=== PATIENT | female | born 1970 | race Caucasian/White ===

== ENCOUNTER → 2016-08-14 | Outpatient (CLI) | payer OTHER ==
[~2016-08-14] MED LIST: ACET-1311 PO; IBUP-1050 PO; PRENTAB26 PO
--- NOTE | 2016-08-14 13:18 | MAMMOGRAPHY REPORT ---
BILATERAL DIGITAL SCREENING MAMMOGRAM TOMOSYNTHESIS WITH CAD: 08/14/2016 CLINICAL HISTORY: Routine screening. Patient has no complaints. TECHNIQUE: Breast tomosynthesis in addition to standard 2D mammography was performed. Current study was also evaluated with a Computer Aided Detection (CAD) system. COMPARISON: Comparison is made to exams dated: 09/13/2015 ultrasound, 09/13/2015 mammogram, 08/11/2015 ma mmogram, 08/08/2014 mammogram, 06/11/2013 mammogram, and 05/22/2012 mammogram - [facility]. BREAST COMPOSITION: The tissue of both breasts is heterogeneously dense, which may obscure small ma sses. FINDINGS: No suspicious masses, calcifications, or areas of architectural distortion are noted in e ither breast. There has been no significant interval change compared to prior exams. Benign-appeari ng circumscribed masses in the left upper outer quadrant are stable. A biopsy marker clip is again noted in the left upper outer quadrant. Bilateral benign-appearing calcifications are not significa ntly changed. IMPRESSION: ACR BI-RADS CATEGORY 2: BENIGN There is no mammographic evidence of malignancy. A 1 year screening mammogram is recommended. The p atient will receive written notification of the results. Approximately 10% of breast cancers are not detected with mammography. A negative mammographic repor t should not delay biopsy if a clinically suggestive mass is present. Sherri Linn M.D. /:08/14/2016 09:00:54 Printed Circuit Board Pcb Designer: Harini CUELLO)(Latoya), [facility] letter sent: Normal 1/2 BI-RADS Code: ACR BI-RADS Category 2: Benign
== END | disposition home or self-care (01) ==
LOC: C.MAMM 08:22
PROVIDERS: ATTEND Obstetrics & Gynecology
DX: Z12.31 Encounter for screening mammogram for malignant neoplasm of breast (principal)

== ENCOUNTER → 2016-08-23 | Outpatient (CLI) | payer OTHER | END | disposition home or self-care (01) | LOC: C.PAPS 15:50 | PROVIDERS: ATTEND Obstetrics & Gynecology | DX: Z01.419 Encounter for gynecological examination (general) (routine) without abnormal findings (principal) ==

== ENCOUNTER → 2017-08-19 | Outpatient (CLI) | payer BC ==
--- NOTE | 2017-08-19 15:04 | MAMMOGRAPHY REPORT ---
BILATERAL DIGITAL SCREENING MAMMOGRAM TOMOSYNTHESIS WITH CAD: 08/19/2017 CLINICAL HISTORY: Routine screening. Patient has no complaints. TECHNIQUE: Breast tomosynthesis in addition to standard 2D mammography was performed. Current study was also evaluated with a Computer Aided Detection (CAD) system. COMPARISON: Comparison is made to exams dated: 08/14/2016 mammogram, 09/13/2015 ultrasound, 09/13/2015 ma mmogram, 08/11/2015 mammogram, 08/08/2014 mammogram, and 06/11/2013 mammogram - [facility] BREAST COMPOSITION: The tissue of both breasts is heterogeneously dense, which may obscure small mas ses. FINDINGS: There is a focal area of architectural distortion in the upper outer approximate 9:00 post erior right breast, for which additional spot compression tomosynthesis views and possible ultrasound are recommended. A lobulated possible bilobed 2 cm mass versus 2 masses in the left upper outer jonas drant posteriorly are increasingly prominent compared to prior mammograms. A biopsy marker clip is a lso seen in the vicinity. Additional spot compression tomosynthesis, exaggerated lateral CC tomosynt hesis views and possible ultrasound are recommended for further characterization. No other suspicious mass, architectural distortion or cluster of microcalcifications is seen bilatera lly. IMPRESSION: ACR BI-RADS CATEGORY 0: INCOMPLETE EVALUATION: NEED ADDITIONAL IMAGING EVALUATION The focal area of architectural distortion in the 9:00 posterior right breast and a bilobed 2 cm mass versus 2 adjacent masses in the left upper outer quadrant posteriorly need additional imaging evalua tion. The patient will be called to schedule an appointment. Approximately 10% of breast cancers are not detected with mammography. A negative mammographic report should not delay biopsy if a clinically suggestive mass is present. Amaya Epps M.D. ay/:08/19/2017 09:07:36 Photo Offset Printer: Charmaine George M, [facility] letter sent: Addl Imaging 0 BI-RADS Code: ACR BI-RADS Category 0: Incomplete Evaluation: Need Additional Imaging Evaluation
== END | disposition home or self-care (01) ==
LOC: C.MAMM 08:08
PROVIDERS: ATTEND Obstetrics & Gynecology
DX: Z12.31 Encounter for screening mammogram for malignant neoplasm of breast (principal)

== ENCOUNTER → 2017-10-30 | Day surgery (SDC) | payer BC ==
[2017-10-01 10:00] VITALS: Ht 176.5 cm; Wt 94.5 kg
--- NOTE | 2017-10-03 12:22 | PAT Medication Instructions ---
Service Date Oct 03, 2017. Current Home Medication List Acetaminophen (Tylenol), 650 MG PO Q4HR PRN Ibuprofen (Advil), 200-600 MG PO Q4HR PRN Multivit/Min/Iron/Fol Ac/Pren ( Vitamin), 1 TAB PO QAM Naproxen (Aleve), 220 MG PO UD PRN for PRN Medication Instructions For Your Scheduled Surgery -Check with your surgeon for instructions for: Ibuprofen (Advil), 200-600 MG PO Q4HR PRN Naproxen (Aleve), 220 MG PO UD PRN for PRN - Hold the following medications the morning of surgery: Multivit/Min/Iron/Fol Ac/Pren ( Vitamin), 1 TAB PO QAM - Take the following medications the morning of surgery with a sip of water: Acetaminophen (Tylenol), 650 MG PO Q4HR PRN (if needed, may be taken up to four hours before surgery) - Take the following medications as scheduled the night before surgery: Acetaminophen (Tylenol), 650 MG PO Q4HR PRN (if needed) If you have any questions please call us at [phone] or [phone] or [phone]
[2017-10-03 12:46] LABS: BASO % 0.5 %; BASO ABS # 0.04 K/uL (0-0.2); EOS % 1.7 %; EOS ABS # 0.14 K/uL (0-0.5); HEMATOCRIT 40.2 % (37-47); HEMOGLOBIN 13.7 g/dL (12.0-16.0); IG# 0.03 K/uL (0.00-0.02); LYMPH % 22.3 %; LYMPH ABS # 1.87 K/uL (1.2-3.4); MEAN CELL VOLUME 90.5 fL (80-100); MEAN CORPUSCULAR HEMOGLOBIN 30.9 pg (25-34); MEAN CORPUSCULAR HGB CONC 34.1 g/dl (32-36); MEAN PLATELET VOLUME 10.4 fL (7.4-10.4); MONO % 6.9 %; MONO ABS # 0.58 K/uL (0.11-0.59); NEUT % 68.2 %; NEUT ABS # 5.71 K/uL (1.4-6.5); PLATELET COUNT 239 K/uL (130-400); RED CELL DISTRIBUTION WIDTH CV 13.7 % (11.5-14.5); WHITE BLOOD COUNT 8.37 K/uL (4.8-10.8)
--- NOTE | 2017-10-03 12:51 | DIAGNOSTIC IMAGING REPORT ---
CHEST 2 VIEWS ROUTINE HISTORY: Preop. COMPARISON: None. FINDINGS: The lungs are clear. Cardiac silhouette is normal in size. No pleural effusions. No pneumothorax. IMPRESSION: No acute process. Electronically signed by: Ananth Collins M.D. 10/03/2017 12:50 PM Dictated Date/Time: 10/03/2017 12:48 PM
[2017-10-03 13:20] LABS: CALCIUM 8.5 mg/dl (8.5-10.1); CREATININE 0.71 mg/dl (0.60-1.20)
[~2017-10-30] VITALS: Ht 176.5 cm; Wt 94.5 kg
[~2017-10-30] MED LIST changes: +ATROPINE SULFATE 0.1 MG/ML 5ML SYR IV PRN; +BUPIVACAINE/EPINEPHRINE 0.5% MPF 1:200,000 30 ML VIAL ONE; +CEFAZOLIN 2000MG IV PUSH 15 ML IV SCH; +DEXAMETHASONE SOD INJ 4 MG/ML VIAL ONE; +EpHEDrine SULFATE INJ 50 MG/ML AMP IV PRN; +FENTANYL CITRATE INJ 50 MCG/1 ML 2 ML VIAL IV PRN; +FENTANYL CITRATE INJ 50 MCG/1 ML 2 ML VIAL ONE; +HYDR-5688 PO; +HYDROCODONE/ACETAMIN 5/325MG TAB PO PRN; +LACTATED RINGER'S 1000ML 1,000 ML IV SCH; +LIDOCAINE HCL 2% 2 ML VIAL (20MG/ML) ONE; +MIDAZOLAM HCL 1 MG/ML 2ML VIAL ONE; +NAPR1TAB9 PO; +ONDANSETRON INJ 2 MG/ML 2 ML VIAL IV PRN; +ONDANSETRON INJ 2 MG/ML 2 ML VIAL ONE; +PROPOFOL IV EMULSION 10 MG/ML 20 ML VIAL ONE; +SODIUM CHLORIDE 0.9% 1000ML 1,000 ML IV SCH
[2017-10-30 09:30] VITALS: BP 161/79; PULSE 66; TEMP 36.8; O2SAT 98
--- NOTE | 2017-10-30 11:08 | History & Physical Bridge Note ---
H&P Re-Evaluation Bridge Note: I have examined the patient, reviewed the History & Physical and in the interval since the performance of the History & Physical I have noted the following changes of clinical significance: No changes noted
--- NOTE | 2017-10-30 13:06 | [facility] Post Operative Brief Note ---
Immediate Operative Summary Operative Date Oct 30, 2017. Pre-Operative Diagnosis Lobular Carcinoma in situ of Right Breast Post-Operative Diagnosis Same as preoperative. Procedure(s) Performed Right Breast Lumpectomy With Needle Localization times [address] Loki Bautista Washer Cutter Surgeon(s) Kassidy Meng PA-C Estimated Blood Loss 50ml Findings Consistent with Post-Op Diagnosis Specimens FRESH: A.) Right Breast Mass #1, 1 Long Lateral, 2 Short Superior, Wire Anterior, 2 Long Posterior B.) Right Breast Mass #2, 1 Long Lateral, 2 Short Superior, 2 Long Posterior C.) Right Breast, Additional Medial Margin Anesthesia Type General
--- NOTE | 2017-10-30 13:21 | Discharge Instructions ---
Discharge Instructions Date of Service Oct 30, 2017. Admission Reason for Admission: [facility] Right Breast Discharge Discharge Diagnosis / Problem: Lcis Right Breast Discharge Goals Goal(s): Decrease discomfort, Improve function Activity Recommendations Activity Limitations: as noted below Lifting Limitations: no more than 10 pounds Exercise/Sports Limitations: until after follow-up appointment May Resume Sexual Activity: after follow-up appointment Shower/Bathe: tomorrow Driving or Machine Use: resume 3 days after discharge . Instructions / Follow-Up Instructions / Follow-Up You may remove your gauze dressing tomorrow. You have steri-strips over your incisions, please allow these to fall off by themselves. You may shower tomorrow, 10/31/2017, but please do not soak or scrub your incisions. Please follow-up in the General Surgery Clinic in 1-2 weeks. Please call the General Surgery Clinic at [phone] to make an appointment if you do not have one already. Please call the clinic at [phone] with any questions or concerns. Current Hospital Diet Patient's current hospital diet: Discharge Diet Recommended Diet: Regular Diet Procedures Procedures Performed: Right Breast Lumpectomy With Needle Localization times 2 Pending Studies Studies pending at discharge: yes List of pending studies: Pathology report. Medical Emergencies . Who to Call and When: Medical Emergencies: If at any time you feel your situation is an emergency, please call 911 immediately. . Non-Emergent Contact Non-Emergency issues call your: Primary Care Provider, Surgeon Call Non-Emergent contact if: temperature is above 101.5, your pain is not controlled, wound has increased drainage, wound has increased redness . "Provider Documentation" section prepared by Kassidy Meng. .
--- NOTE | 2017-10-30 13:22 | [facility] Operative Report ---
Operative Report Operative Date Oct 30, 2017. Pre-Operative Diagnosis Lobular Carcinoma in situ of Right Breast Post-Operative Diagnosis Same as preoperative. Procedure(s) Performed Right Breast Lumpectomy With Needle Localization times [address] Loki Bautista Air Drill Operator Surgeon(s) Kassidy Meng PA-C Estimated Blood Loss 50ml Specimens FRESH: A.) Right Breast Mass #1, 1 Long Lateral, 2 Short Superior, Wire Anterior, 2 Long Posterior B.) Right Breast Mass #2, 1 Long Lateral, 2 Short Superior, 2 Long Posterior C.) Right Breast, Additional Medial Margin Anesthesia Type General Description of Procedure Prior to coming to the operating room the patient had been to the breast center and had 2 lesions needle localized without difficulty. She was then brought to the operating room and placed in supine position with the right arm extended. After successful placement of the laryngeal mask airway the right breast and chest wall was sterilely prepped and draped in usual fashion. We began with the medial most lesion. I made a periareolar incision with scalpel and created flaps using electrocautery. We cut the guidewire short and delivered it into the wound. Then using traction countertraction we came around the guidewire in 360 until we were posterior to the clip and yun. We then removed the lesion in 1 piece. I marked it such that one long stitch was lateral 2 short sutures were superior and 2 long sutures were posterior. We thoroughly irrigated the wound. I controlled any bleeding points using electrocautery. Jim powder was then placed on all the raw surfaces. I closed the wound using 2-0 Vicryl for deep layers 3-0 Vicryl for mid layers and 4-0 Monocryl for the skin. Marcaine with epinephrine was injected around for postoperative analgesia. Benzoin Steri-Strips were placed as a dressing. We did x-ray to ensure that the clip was in the middle of the specimen of which it was. Attention then turned to the lateral lesion. We used the same technique. I used a curvilinear incision just lateral to the guidewire and carried this down through the soft tissue creating skin flaps. We then cut the wire delivered it into the wound. Again I came around the guidewire in 360 until we were below the yun. I then removed the lump and marked it again 2 short sutures were superior one long suture was lateral and 2 long laterals were posterior. When we x-rayed the specimen however I wanted to take a little bit more on the medial side of the clip. We took several more centimeters on the medial side of where the clip had been and sent this is extra specimen. We then irrigated the wound and again placed Jim on the raw surfaces and closed it with 2-0 Vicryl for deep layers 3-0 Vicryl for mid layers and 4-0 Monocryl for skin. Marcaine was injected for postoperative analgesia. Benzoin and Steri-Strips were applied. The patient was then awaken extubated and transferred to recovery in stable condition. My physician physician assistant assisted throughout the case. She helped prep the patient. She helped with wound exposure throughout my dissection. She helped with wound closure and dressing placement. I attest to the content of the Intraoperative Record and any orders documented therein. Any exceptions are noted below.
--- NOTE | 2017-10-30 13:47 | Anesthesiology Progress Note ---
Anesthesia Post Op Note Date & Time Oct 30, 2017 at 13:47 Vital Signs Pain Intensity: 0 Vital Signs Past 12 Hours Date Time Temp Pulse Resp B/P (MAP) Pulse Ox O2 Delivery O2 Flow Rate FiO2 10/30/17 13:35 58 16 137/72 97 Room Air 10/30/17 13:25 62 16 141/81 100 Oxymask 3 10/30/17 13:17 36.0 64 16 142/86 100 Oxymask 3 10/30/17 09:30 36.8 66 16 161/79 (106) 98 Room Air Notes Mental Status: alert / awake / arousable, participated in evaluation Pt Amnestic to Procedure: Yes Nausea / Vomiting: adequately controlled Pain: adequately controlled Airway Patency, RR, SpO2: stable & adequate BP & HR: stable & adequate Hydration State: stable & adequate Anesthetic Complications: no major complications apparent
[2017-10-30 14:00] VITALS: BP 138/76; PULSE 57; TEMP 36.5; O2SAT 100
[2017-10-30 14:30] VITALS: BP 142/69; PULSE 71; TEMP 36.5; O2SAT 97
--- NOTE | 2017-10-30 16:01 | MAMMOGRAPHY REPORT ---
MULTIPLE NEEDLE LOCALIZATION RIGHT BREAST: 10/30/2017 CLINICAL HISTORY: Recent ultrasound-guided biopsies of right 10 and 12:00 breast masses which yielded LCIS. The patient presents for needle localization. PROCEDURE DESCRIPTION: With ultrasound guidance, aseptic technique, and 1% lidocaine as the local ane sthetic, the previously biopsied hypoechoic mass and associated biopsy marker clip in the right 10:00 breast were localized with a 5 cm Krishna II needle. Immediately thereafter, the previously biopsie d hypoechoic mass in the right 12:00 breast and associated biopsy marker clip were localized with a 5 cm Krishna II needle. The needles were removed. Postprocedural right CC and ML 2D and tomosynthesi s images were obtained, which shows that the two localized biopsy clips are located along the distal portion of the wire between the tip and the yun. The patient tolerated the procedure without complic ation. COMPARISON: Comparison is made to exams dated: 10/30/2017 specimen, 10/17/2017 ultrasound, 10/14/2017 b reast MRI, 09/23/2017 ultrasound biopsy, 09/23/2017 ultrasound biopsy, and 09/23/2017 mammogram - [facility]. IMPRESSION: NEEDLE LOCALIZATION Ultrasound-guided needle localization of hypoechoic masses and associated biopsy marker clips in the right 10 and 12:00 breast. Sherri Linn M.D. /:10/30/2017 08:53:34 Steam Drier Tender: Ashlee Bonilla, [facility]
--- NOTE | 2017-10-30 16:01 | MAMMOGRAPHY REPORT ---
MULTIPLE SPECIMENS RIGHT BREAST: 10/30/2017 CLINICAL HISTORY: Status post right breast surgical excision. Comparison: Images from needle localization performed earlier today. Findings: A radiograph was performed of the right breast surgical specimens. The localized coil-shap ed biopsy marker clip and needle localization wire are present within one of the specimens. The othe r specimen shows the localized wing-shaped biopsy marker clip and intact needle localization wire; th e wing clip extends close to 1 of the edges of the specimen, likely the medial edge. This finding wa s discussed with Dr. Bautista and he will excise more medial tissue. The ribbon-shaped biopsy marker clip from prior benign biopsy is also present within the specimen. IMPRESSION: SPECIMEN The imaged specimens contain the preoperativelylocalized biopsy marker clips. Sherri Linn M.D. ah/:10/30/2017 13:16:38 Party Plan Dealer: Ashlee Bonilla, [facility]
== END | disposition home or self-care (01) ==
LOC: C.ACU 07:46
PROVIDERS: ATTEND Surgery
DX: D05.01 Lobular carcinoma in situ of right breast (principal)